=== PATIENT | female | born 1960 | race Caucasian/White ===

== ENCOUNTER → 2017-01-20 | Outpatient (CLI) | payer OTHER | LOC: COL.RAD 07:21 | DX: R09.02 Hypoxemia (principal); N28.9 Disorder of kidney and ureter, unspecified | CPT/HCPCS: A9539; A9540 ==

== ENCOUNTER → 2021-06-06 | Outpatient (CLI) | payer OTHER | LOC: COL.RAD 13:02 | DX: M50.222 Other cervical disc displacement at C5-C6 level (principal); M48.02 Spinal stenosis, cervical region; M25.78 Osteophyte, vertebrae ==